=== PATIENT | male | born 1975 | race Two or more races ===

== ENCOUNTER 2016-09-17 14:04 | Outpatient (CLI) | payer OTHER | END 2016-09-17 14:05 | disposition home or self-care (01) | LOC: NC 14:04 | PROVIDERS: ATTEND Nurse Practitioner Family | DX: E66.9 Obesity, unspecified (principal); Z71.3 Dietary counseling and surveillance ==

== ENCOUNTER 2016-12-03 09:37 | Outpatient (CLI) | payer OTHER | END 2016-12-03 09:38 | disposition home or self-care (01) | LOC: NC 09:37 | PROVIDERS: ATTEND Nurse Practitioner Family | DX: E66.9 Obesity, unspecified (principal); Z71.3 Dietary counseling and surveillance; Z68.34 Body mass index [BMI] 34.0-34.9, adult; Z87.891 Personal history of nicotine dependence ==